=== PATIENT | female | born 1970 | race Caucasian/White ===

== ENCOUNTER 2016-11-20 11:11 | Emergency (ER) | payer SELFPAY ==
[2016-11-20 11:25] VITALS: TEMP 100
[2016-11-20 11:43] LABS: % IMMATURE GRANULYOCYTES 0.4 % (0.0-1.1); ABSOLUTE IMMATURE GRANULOCYTES 0.05 10^3/uL (0.00-0.10); ADD DIFF? NO; ADD MORPH? NO; ADD SCAN? NO; ATYPICAL LYMPHOCYTE FLAG 0 (0-99); FRAGMENT RBC FLAG 0 (0-99); HEMATOCRIT 35.2 % (38.0-47.0); HEMOGLOBIN 11.3 g/dL (12.6-16.3); LEFT SHIFT FLG 10 (0-99); LIPEMIA HEMOLYSIS FLAG 80 (0-99); MEAN CELL HEMOGLOBIN CONCENTR. 32.1 g/dL (32.4-36.7); MEAN CELL VOLUME 87.3 fL (81.5-99.8); MEAN PLATELET VOLUME 11.3 fL (8.7-11.7); PLATELET CLUMPS FLAG 20 (0-99); PLATELET COUNT 270 10^3/uL (150-400); RED BLOOD CELL COUNT 4.03 10^6/uL (4.18-5.33); RED CELL DISTRIBUTION WIDTH 14.4 % (11.5-15.2)
[2016-11-20 12:04] LABS: ANION GAP 11 mEq/L (8-16); CALCIUM 9.4 mg/dL (8.5-10.4); CARBON DIOXIDE 23 mEq/l (22-31); CHLORIDE 106 mEq/L (97-110); CREATININE 0.9 mg/dL (0.6-1.0); GLOMERULAR FILTRATION RATE > 60; GLUCOSE 95 mg/dL (70-100); POTASSIUM 3.8 mEq/L (3.5-5.2); SODIUM 140 mEq/L (134-144)
[2016-11-20] MEDS ORDERED: ONDANSETRON 4 MG/2 ML VIAL ONE (12:14)
[2016-11-20] MEDS ORDERED: fentaNYL 100 MCG/2 ML INJ ONE (12:14)
--- NOTE | 2016-11-20 12:14 | EDPHY ---
H & P Time Seen by Provider: 11/20/16 11:26 HPI/ROS: CHIEF COMPLAINT: Abdominal pain HISTORY OF PRESENT ILLNESS: 46-year-old female presents to the emergency department by private vehicle complaining of left lower quadrant abdominal pain that began on Tuesday, for 5 days ago. Patient states that it began very mild in her left lower quadrant and then has progressed become much worse. No nausea or vomiting. No diarrhea. No urinary symptoms. No blood in her stool. No blood in the urine. No dysuria, urgency or frequency with urination. No chest pain or difficulty breathing. She feels that her abdomen is distended. She denies any reported trauma. She has felt feverish. Normal bowel movement yesterday and today. REVIEW OF SYSTEMS: Constitutional: No fever, no chills. Eyes: No double or blurry vision. ENT: No sore throat. Respiratory: No cough, no shortness of breath. Cardiac: No chest pain. Gastrointestinal: Abdominal pain as above. No vomiting or diarrhea. Genitourinary: No dysuria. Musculoskeletal: No neck or back pain. Skin: No rashes. Neurological: No headache. Past Medical/Surgical History: Appendectomy, , wisdom teeth extraction, uterine ablation 4 years ago, uterine fibroids Social History: Smoking Status: Former smoker Physical Exam: General Appearance: Alert, no distress. Temperature 37.8. Eyes: Pupils equal and round. Extraocular motions are all intact. ENT: Mouth: Mucous membranes moist. Respiratory: No wheezing, rhonchi, or rales, lungs are clear to auscultation. Cardiovascular: Regular rate and rhythm. Gastrointestinal: Abdomen is soft. She has tenderness with palpation in her left lower quadrant. She has some mild rebound tenderness. No guarding. No palpable masses. Nontender to palpate the right lower quadrant. Nontender to palpate the suprapubic area. No CVA tenderness bilaterally. Neurological: Alert and oriented x 3, cranial nerves II through XII grossly intact Skin: Warm and dry, no rashes. Musculoskeletal: Nontender to palpate along the cervical, thoracic or lumbar spine. Neck is supple. Extremities: Full range of motion and no peripheral edema. Psychiatric: Patient is oriented X 3, there is no agitation. Constitutional: Initial Vital Signs Temperature (C) 37.8 C 11/20/16 11:20 Heart Rate 98 11/20/16 11:20 Respiratory Rate 18 11/20/16 11:20 Blood Pressure 136/79 H 11/20/16 11:20 O2 Sat (%) 98 11/20/16 11:20 O2 Delivery Mode Room Air Allergies/Adverse Reactions: codeine Allergy (Severe, Verified 11/20/16 11:22) Anaphylaxis Home Medications: Medication Instructions Recorded Antidepressant 11/20/16 Medical Decision Making - Diagnostics Imaging Results: Imaging Impressions Abdomen CT 11/20/16 12:31 Impression: 1. Cystic change within both ovaries, left greater than right, associated with left ovarian enlargement. Left ovary is transposed slightly superiorly within the left hemipelvis. 2. Fibroid enlargement of the uterus, with fluid-filled distention of the endometrial cavity. 3. No CT evidence of acute diverticulitis or diverticulosis. Results called to Grecia Haider PA-C, at 1:15 p.m. Pelvic/Renal Ultrasound 11/20/16 13:20 Impression: 1. Ectopic left ovary containing a 2.4 cm cyst. No evidence of ovarian torsion bilaterally. 2. Thickened endometrium. Multiple submucosal uterine fibroids. Uterine enlargement. Results called to Grecia King PA-C, at 2:55 PM. Imaging: Discussed imaging studies w/ video game repair technician Radiologist ED Course/Re-evaluation: 46-year-old female presents to the emergency department with abdominal pain. Patient had left lower quadrant abdominal pain. I was concerned about possible diverticulitis. Laboratory studies [place] [address]. Patient had a CT imaging of the abdomen pelvis revealed no evidence of diverticulitis or diverticulosis. She did however have her left ovary riding very high out of the pelvic floor. It appeared complex with cystic lesion. Pelvic ultrasound reveals 2.4 cm left ovarian cyst without evidence of torsion. She had a thickened endometrial lining of at least 2 cm with numerous submucosal fibroids. The patient initially required IV fentanyl for pain. I spoke with the on-call OBGYN, Dr. Francois, who recommended anti-inflammatory such as IV Toradol and she can be discharged home. For pain was too great that she should return to the emergency department. The patient was offered admission and she declined. She was given 30 mg of IV Toradol and was feeling much better. She felt comfortable being discharged home. Encouraged close follow-up with OBGYN on-call. She has was given strict instructions to return to the emergency department immediately if she developed vaginal bleeding, worsening abdominal hitting, fever, vomiting, or if she felt worse in any way. She was comfortable with this plan. Differential Diagnosis: Including but not limited to ovarian cyst, ovarian torsion, diverticulitis, acute appendicitis, urinary tract infection, pyelonephritis - Data Points Laboratory Results: Laboratory Results 11/20/16 11:36 11/20/16 11:36 11/20/16 11/20/16 11/20/16 14:00 11:36 11:36 WBC RBC Hgb Hct MCV MCH MCHC RDW Plt Count MPV Neut % (Auto) Lymph % (Auto) Coal % (Auto) Eos % (Auto) Baso % (Auto) Nucleat RBC Rel Count Absolute Neuts (auto) Absolute Lymphs (auto) Absolute Monos (auto) Absolute Eos (auto) Absolute Basos (auto) Absolute Nucleated RBC Immature Gran % Immature Gran # Sodium 140 mEq/L mEq/L (134-144) Potassium 3.8 mEq/L mEq/L (3.5-5.2) Chloride 106 mEq/L mEq/L (97-110) Carbon Dioxide 23 mEq/l mEq/l (22-31) Anion Gap 11 mEq/L mEq/L (8-16) BUN 9 mg/dL mg/dL (7-23) Creatinine 0.9 mg/dL mg/dL (0.6-1.0) Estimated GFR > 60 Glucose 95 mg/dL mg/dL (70-100) Calcium 9.4 mg/dL mg/dL (8.5-10.4) Beta HCG, Qual NEGATIVE Urine Color PALE YELLOW Urine Appearance CLEAR Urine pH 6.0 (5.0-7.5) Ur Specific [place] 1.032 H (1.002-1.030) Urine Protein NEGATIVE (NEGATIVE) Urine Ketones NEGATIVE (NEGATIVE) Urine Blood NEGATIVE (NEGATIVE) Urine Nitrate NEGATIVE (NEGATIVE) Urine Bilirubin NEGATIVE (NEGATIVE) Urine Urobilinogen NEGATIVE EU EU (0.2-1.0) Ur Leukocyte Esterase NEGATIVE (NEGATIVE) Urine RBC 1-3 /hpf /hpf (0-3) Urine WBC 1-3 /hpf /hpf (0-3) Ur Epithelial Cells TRACE /lpf /lpf (NONE-1+) Urine Glucose NEGATIVE (NEGATIVE) 11/20/16 11:36 WBC 12.34 10^3/uL H 10^3/uL (3.80-9.50) RBC 4.03 10^6/uL L 10^6/uL (4.18-5.33) Hgb 11.3 g/dL L g/dL (12.6-16.3) Hct 35.2 % L % (38.0-47.0) MCV 87.3 fL fL (81.5-99.8) MCH 28.0 pg pg (27.9-34.1) MCHC 32.1 g/dL L g/dL (32.4-36.7) RDW 14.4 % % (11.5-15.2) Plt Count 270 10^3/uL 10^3/uL (150-400) MPV 11.3 fL fL (8.7-11.7) Neut % (Auto) 87.4 % H % (39.3-74.2) Lymph % (Auto) 7.5 % L % (15.0-45.0) Coal % (Auto) 3.5 % L % (4.5-13.0) Eos % (Auto) 0.8 % % (0.6-7.6) Baso % (Auto) 0.4 % % (0.3-1.7) Nucleat RBC Rel Count 0.0 % % (0.0-0.2) Absolute Neuts (auto) 10.78 10^3/uL H 10^3/uL (1.70-6.50) Absolute Lymphs (auto) 0.93 10^3/uL L 10^3/uL (1.00-3.00) Absolute Monos (auto) 0.43 10^3/uL 10^3/uL (0.30-0.80) Absolute Eos (auto) 0.10 10^3/uL 10^3/uL (0.03-0.40) Absolute Basos (auto) 0.05 10^3/uL 10^3/uL (0.02-0.10) Absolute Nucleated RBC 0.00 10^3/uL 10^3/uL (0-0.01) Immature Gran % 0.4 % % (0.0-1.1) Immature Gran # 0.05 10^3/uL 10^3/uL (0.00-0.10) Sodium Potassium Chloride Carbon Dioxide Anion Gap BUN Creatinine Estimated GFR Glucose Calcium Beta HCG, Qual Urine Color Urine Appearance Urine pH Ur Specific [place] Urine Protein Urine Ketones Urine Blood Urine Nitrate Urine Bilirubin Urine Urobilinogen Ur Leukocyte Esterase Urine RBC Urine WBC Ur Epithelial Cells Urine Glucose Medications Given: Discontinued Medications Fentanyl (Sublimaze) 50 mcg IVP EDNOW ONE Stop: 11/20/16 12:23 Last Admin: 11/20/16 12:24 Dose: 50 mcg Fentanyl (Sublimaze) 50 mcg IVP EDNOW ONE Stop: 11/20/16 13:59 Last Admin: 11/20/16 14:07 Dose: 50 mcg Ketorolac Tromethamine (Toradol) 30 mg IVP EDNOW ONE Stop: 11/20/16 15:48 Last Admin: 11/20/16 16:04 Dose: 30 mg Ondansetron HCl (Zofran) 4 mg IVP EDNOW ONE Stop: 11/20/16 12:23 Last Admin: 11/20/16 12:24 Dose: 4 mg Departure - Departure Disposition: Home, Routine, Self-Care Clinical Impression: Abdominal pain Qualifiers: Abdominal location: lower abdomen, unspecified Qualified Code(s): R10.30 - Lower abdominal pain, unspecified Uterine fibroid Qualifiers: Uterine leiomyoma location: submucous Qualified Code(s): D25.0 - Submucous leiomyoma of uterus Condition: Good Instructions: Uterine Fibroids (ED), Abdominal Pain (ED) Additional Instructions: Ibuprofen 600 mg every 8 hours as needed for pain. You should not need any additional ibuprofen tonight since your given IV Toradol in the emergency department. Follow-up with OBGYN as discussed. Return to the emergency department if you developed worsening abdominal pain, vomiting, fever, heavy vaginal bleeding, or if you feel worse in any way. Referrals: Marcie Lazaro MD [Medical Doctor] - As per Instructions (OBGYN on-call)
[2016-11-20] MEDS ORDERED: ONDANSETRON 4 MG/2 ML VIAL IVP ONE (12:22)
[2016-11-20] MEDS ORDERED: fentaNYL 100 MCG/2 ML INJ IVP ONE ×2 (12:22→13:58)
[2016-11-20] MEDS ORDERED: IOPAMIDOL (ISOVUE-300) 100 ML BTL ONE (12:42)
[2016-11-20 15:39] LABS: COLOR PALE YELLOW; LEUKOCYTE ESTERASE,URINE NEGATIVE (NEGATIVE); NITRITE,URINE NEGATIVE (NEGATIVE)
[2016-11-20] MEDS ORDERED: KETOROLAC 30 MG/1 ML SDV IVP ONE (15:47)
[2016-11-20 17:07] VITALS: BP 115/77; PULSE 90; RESP 16; O2SAT 96
== END 2016-11-20 17:33 | disposition home or self-care (01) ==
DX: D25.0 Submucous leiomyoma of uterus (principal); Z87.891 Personal history of nicotine dependence
CPT/HCPCS: 96374; J1885; J2405; J3010; Q9967

== ENCOUNTER 2016-11-21 18:59 | Emergency (ER) | payer SELFPAY ==
[2016-11-21 19:05] VITALS: RESP 18; TEMP 98.6
--- NOTE | 2016-11-21 19:20 | EDPHY ---
H & P Stated Complaint: here yest for same complaint, Abd pain bloating. HPI/ROS: CHIEF COMPLAINT: Abdominal bloating. HISTORY OF PRESENT ILLNESS: The patient is a 46-year-old female presenting with abdominal bloating. The patient was here yesterday for left lower abdominal pain. She was diagnosed with a 2cm left ovarian cyst (with an ectopic left ovary ) and fibroids. She received Toradol and was told to take Ibuprofen for pain management. The patient woke up this morning feeling better. Her pain improved to a 2 or 3. She went for a walk with friends and then out to lunch. After lunch , while walking on [place], her abdomen began to feel bloated. She reports feeling a pressure sensation and not much pain. Patient is able to pass gas. She has not had a bowel movement today which is abnormal for her. She has taken a total of 1200mg Ibuprofen today. She denies nausea or vomiting. No fever. No urinary symptoms. She came in today on the advice of a nurse friend. REVIEW OF SYSTEMS: A ten point review of systems was performed and is negative with the exception of the items mentioned in the HPI. Source: Patient Exam Limitations: No limitations - Personal History LMP (Females 10-55): 1-7 Days Ago - Medical/Surgical History Other PMH: Depression, Ovarian cyst, Fibroids - Social History Smoking Status: Former smoker Drug Use: None Additional Social History: Lives in [place] with her , here for 7 weeks. Born in [place]. - Physical Exam Exam: General Appearance: Alert. Vital signs reviewed. Eyes: Pupils equal and round, no conjunctival injection, no discharge. Anicteric. ENT, Mouth: Mucous membranes are moist, no oropharyngeal erythema or edema. Neck: No lymphadenopathy, supple. Respiratory: Lungs are clear to auscultation; no wheezes, rales, or rhonchi. Cardiovascular: Regular rate and rhythm; no murmur, rub, or gallop. Gastrointestinal: Abdomen is soft and nontender but somewhat distended, no masses or organomegaly, bowel sounds normal. Skin: Warm and dry, no rashes on exposed skin, normal color. Back: No CVAT. Neurological: Alert and oriented. Moving all four extremities easily and equally. Psychiatric: Normal affect. Constitutional: Initial Vital Signs Temperature (C) 37.0 C 11/21/16 19:02 Heart Rate 83 11/21/16 19:02 Respiratory Rate 18 11/21/16 19:02 Blood Pressure 134/77 H 11/21/16 19:02 O2 Sat (%) 96 11/21/16 19:02 O2 Delivery Mode Room Air Allergies/Adverse Reactions: codeine Allergy (Severe, Verified 11/20/16 11:22) Anaphylaxis Home Medications: Medication Instructions Recorded Antidepressant 11/20/16 Medical Decision Making - Diagnostics Imaging: Discussed imaging studies w/ melt room operator Radiologist, I viewed and interpreted images myself ED Course/Re-evaluation: Patient seen here yesterday with ovarian cyst and fibroids, returns today with abdominal bloating. Patient reports her ovarian cyst pain has improved. She now has abdominal bloating, no nausea or vomiting, passing flatus. Patient has not had a bowel movement today. She had an ultrasound CT abd/pel yesterday. Plan for abdominal x-ray to look for obstruction (unlikely given that she is passing flatus). KUB shows nonspecific bowel gas pattern. She reports increase in flatus. She is not in pain. I do not suspect ovarian torsion, ruptured cyst, abscess, or other potentially surgical problem. I feel that is safe for her to return home and she agrees. She plans FU with ob/ wood strip block floor installer. Danger signs reviewed. Departure - Departure Disposition: Home, Routine, Self-Care Clinical Impression: Abdominal bloating Condition: Good Instructions: Gas and Bloating (ED) Additional Instructions: Followup with your primary care physician when you return home. Return to the Emergency Department if you develop fever, worsening pain, dizziness, or lightheadedness. You have been referred to a local primary care physician. Please followup if you continue to have symptoms. Referrals: Bob Pollock [Doctor of Osteopathy] - As per Instructions Report Scribed for: Giovanna Dillon Report Scribed by: Andra Casillas Date of Report: 11/21/16 Time of Report: 19:37 Physician Review and Approval Statement: 11/21/16 19:20 Portions of this note were transcribed by the medical tech. I, Dr. Giovanna Dillon, personally performed the history, physical exam, and medical decision- making; and confirmed the accuracy of the information in the transcribed note.
[2016-11-21 22:18] VITALS: BP 122/74; PULSE 71; O2SAT 95
== END 2016-11-21 21:45 | disposition home or self-care (01) ==
DX: R14.0 Abdominal distension (gaseous) (principal); Z87.891 Personal history of nicotine dependence

== ENCOUNTER 2016-11-24 15:32 | Emergency (ER) | payer SELFPAY ==
[2016-11-24 15:39] VITALS: O2SAT 95
--- NOTE | 2016-11-24 16:19 | EDPHY ---
H & P Time Seen by Provider: 11/24/16 15:59 HPI/ROS: HPI Left lower abdominal pain. 46-year-old female by private vehicle with her friend. This is her 3rd visit to the emergency department. She was seen on November 20 and November 21 for the same complaint. She had a CT of her abdomen and pelvis at that time as well as to pelvic ultrasound. 1 transvaginal. The other transabdominal. Imaging studies did not demonstrate any significant findings other than left ovarian cyst. She reports that she developed this pain 1 week ago after finishing her period. She reports the pain has continued and is slightly worse over the last couple of days. She reports also having some residual bleeding from her period but this has decreased over the last few days. She has not had a fever. No urinary complaints. She has had mild nausea but no vomiting. ROS: Constitutional: No fever, no chills. No weakness. Eyes: No discharge. No changes in vision. ENT: No sore throat. No nasal congestion or rhinorrhea. Respiratory: No cough. No shortness of breath. Cardiac: No chest pain, no palpitations. Gastrointestinal: As above, no vomiting, no diarrhea. Genitourinary: No hematuria. No dysuria or increased frequency with urination. Musculoskeletal: No back pain. No neck pain. No myalgias or arthralgias. Skin: No rashes. Neurological: No headache. No focal weakness or altered sensation. Past medical history: Appendectomy, uterine fibroids, uterine ablation 4 years ago. Social history: Nonsmoker. No alcohol. She currently lives in [facility]. She is here with a friend of hers. Physical Exam: General Appearance: Alert, no distress. This patient is responding to questions appropriately and in full sentences. This patient appears well- hydrated and well-nourished. Eyes: Pupils equal and round no pallor or injection. No lid edema, erythema or injection. Respiratory: There are no retractions, lungs are clear to auscultation with good air movement bilaterally. Cardiovascular: Regular rate and rhythm. No murmur. Gastrointestinal: Abdomen is soft with tenderness on palpation of the left lower quadrant, no masses, bowel sounds normal. No focal tenderness at McBurney 's point. No Akhtar sign. Neurological: Motor sensory function is grossly intact. Cranial nerves are normal. Gait is normal. Skin: Warm and dry, no rashes. Musculoskeletal: Neck is supple and nontender. Extremities are symmetrical. All joints range without pain or impingement. Psychiatric: No agitation. No depression. Database: EKG: Imaging: Transvaginal pelvic ultrasound: Significant for left ovarian cyst which is hemorrhagic and has enlarged to 4.6 cm from previous study. Questionable endometrial polyp with which the patient is aware of. Otherwise normal study. No free fluid. No evidence of torsion or other pathology. Procedures: Emergency department course: IV placed. Blood work was reviewed from her previous visit. Creatinine is normal. She has no contraindications to NSAIDs. Toradol worked well for her during her last emergency department visit. She will be given 30 mg IV. She will be started on IV normal saline with 1 L to be given over the next hour. Pelvic ultrasound will be repeated to evaluate for ovarian pathology. 6:50 p.m., patient re-evaluated. Resting comfortably at this time. I discussed the results of her lab work as well as ultrasound. I discussed follow -up with OBGYN through [facility]. She received information on referral to them from her previous visit. Her pain has resolved. She is feeling much better. Repeat abdominal exam she is soft with mild if any tenderness on palpation of the left lower quadrant. She feels comfortable going home with her friend and is requesting discharge at this time. I feel she is safe for discharge. I reviewed follow-up. Return to emergency department precautions were thoroughly reviewed with her. All of her questions were answered. She was discharged in good condition. Differential Diagnosis: The differential diagnosis on this patient includes but is not limited to ruptured ovarian cyst. Diverticulitis, volvulus, ectopic , ovarian torsion unlikely. This represents a partial list of diagnoses considered. These considerations are based on history, physical exam, past history, reassessment and diagnostic testing. Smoking Status: Former smoker Constitutional: Initial Vital Signs Temperature (C) 37.4 C 11/24/16 15:36 Heart Rate 96 11/24/16 15:36 Respiratory Rate 18 11/24/16 15:36 Blood Pressure 121/81 H 11/24/16 15:36 O2 Sat (%) 95 11/24/16 15:36 O2 Delivery Mode Room Air Allergies/Adverse Reactions: codeine Allergy (Severe, Verified 11/24/16 15:36) Anaphylaxis Home Medications: Medication Instructions Recorded Antidepressant 11/20/16 Medical Decision Making - Data Points Laboratory Results: Laboratory Results 11/24/16 16:40 11/24/16 16:40 Medications Given: Discontinued Medications Hydromorphone HCl (Dilaudid) 0.5 mg IVP EDNOW ONE Stop: 11/24/16 16:21 Last Admin: 11/24/16 16:40 Dose: 0.5 mg Sodium Chloride (Ns) 1,000 mls @ 0 mls/hr IV EDNOW ONE; Wide Open PRN Reason: Protocol Stop: 11/24/16 16:21 Last Admin: 11/24/16 16:38 Dose: 1,000 mls Ketorolac Tromethamine (Toradol) 30 mg IVP EDNOW ONE Stop: 11/24/16 16:21 Last Admin: 11/24/16 16:38 Dose: 30 mg Ondansetron HCl (Zofran) 4 mg IVP EDNOW ONE Stop: 11/24/16 16:21 Last Admin: 11/24/16 16:42 Dose: 4 mg Departure - Departure Disposition: Home, Routine, Self-Care Clinical Impression: Abdominal pain, left lower quadrant, Ruptured ovarian cyst Condition: Good Instructions: Ruptured Ovarian Cyst (ED) Additional Instructions: Read and follow provided instructions. Follow-up with [facility], as discussed for re-evaluation within the next 1-2 days. Ibuprofen dosin mg every 6 hours with meals for the next 3 days only. Do not start taking this medication until tomorrow morning. Return to the emergency department for worsening pain, fever, vomiting, vaginal bleeding, lightheadedness or other serious concerns. Referrals: Leyda Estrada MD [Medical Doctor] - As per Instructions
[2016-11-24] MEDS ORDERED: HYDROmorphONE/DILAUDID 1 MG/ML SYR IVP ONE (16:20)
[2016-11-24] MEDS ORDERED: KETOROLAC 30 MG/1 ML SDV IVP ONE (16:20)
[2016-11-24] MEDS ORDERED: NS 1,000 ML IV ONE (16:20)
[2016-11-24] MEDS ORDERED: ONDANSETRON 4 MG/2 ML VIAL IVP ONE (16:20)
[2016-11-24 16:59] LABS: % IMMATURE GRANULYOCYTES 0.4 % (0.0-1.1); ABSOLUTE IMMATURE GRANULOCYTES 0.04 10^3/uL (0.00-0.10); ADD DIFF? NO; ADD MORPH? NO; ADD SCAN? NO; ATYPICAL LYMPHOCYTE FLAG 0 (0-99); FRAGMENT RBC FLAG 0 (0-99); HEMOGLOBIN 10.7 g/dL (12.6-16.3); LEFT SHIFT FLG 0 (0-99); LIPEMIA HEMOLYSIS FLAG 80 (0-99); MEAN CELL HEMOGLOBIN 27.9 pg (27.9-34.1); MEAN CELL HEMOGLOBIN CONCENTR. 32.4 g/dL (32.4-36.7); MEAN CELL VOLUME 85.9 fL (81.5-99.8); PLATELET CLUMPS FLAG 0 (0-99); PLATELET COUNT 288 10^3/uL (150-400); RED BLOOD CELL COUNT 3.84 10^6/uL (4.18-5.33); RED CELL DISTRIBUTION WIDTH 14.2 % (11.5-15.2)
[2016-11-24 17:20] LABS: COLOR PALE YELLOW; LEUKOCYTE ESTERASE,URINE NEGATIVE (NEGATIVE); NITRITE,URINE NEGATIVE (NEGATIVE)
[2016-11-24 17:22] LABS: BACTERIA TRACE /hpf (NONE SEEN)
[2016-11-24 17:35] LABS: ANION GAP 9 mEq/L (8-16); CALCIUM 9.2 mg/dL (8.5-10.4); CARBON DIOXIDE 23 mEq/l (22-31); CHLORIDE 106 mEq/L (97-110); GLOMERULAR FILTRATION RATE 59; GLUCOSE 87 mg/dL (70-100); POTASSIUM 4.1 mEq/L (3.5-5.2); SODIUM 138 mEq/L (134-144)
[2016-11-24 19:17] VITALS: BP 108/68; PULSE 75; RESP 20; TEMP 98.2
== END 2016-11-24 19:19 | disposition home or self-care (01) ==
DX: N83.202 Unspecified ovarian cyst, left side (principal); E86.9 Volume depletion, unspecified; Z87.891 Personal history of nicotine dependence
CPT/HCPCS: 96374; J1170; J1885; J2405

== ENCOUNTER → 2016-12-01 | Outpatient (CLI) | payer OTHER | LOC: FIMAGING 14:45 | PROVIDERS: ATTEND Midwife | DX: D25.0 Submucous leiomyoma of uterus (principal); D25.1 Intramural leiomyoma of uterus ==

== ENCOUNTER 2016-12-02 20:38 | Inpatient (IN) | payer OTHER ==
--- NOTE | 2016-12-02 21:44 | EDPHY ---
H & P Stated Complaint: Nausea, lightheaded, sharp L sided pain. Time Seen by Provider: 12/02/16 21:44 - Personal History LMP (Females 10-55): Irregular Current Tetanus/Diphtheria Vaccine: Unsure Current Tetanus Diphtheria and Acellular Pertussis (TDAP): Unsure - Medical/Surgical History Hx Asthma: No Hx Chronic Respiratory Disease: No Hx Diabetes: No Hx Cardiac Disease: No Hx Renal Disease: No Hx Cirrhosis: No Hx Alcoholism: No Hx HIV/AIDS: No Hx Splenectomy or Spleen Trauma: No Other PMH: Depression, Ovarian cyst, Fibroids, appy, , D & C. - Social History Smoking Status: Former smoker Constitutional: Initial Vital Signs Temperature (C) 37.8 C 12/02/16 20:41 Heart Rate 115 H 12/02/16 20:41 Respiratory Rate 18 12/02/16 20:41 Blood Pressure 110/73 12/02/16 20:41 O2 Sat (%) 97 12/02/16 20:41 O2 Delivery Mode Room Air Allergies/Adverse Reactions: codeine Allergy (Severe, Verified 12/02/16 20:45) Anaphylaxis Home Medications: Medication Instructions Recorded Antidepressant 11/20/16 Mirtazapine 12/02/16 Tramadol HCl 12/02/16 Medical Decision Making - Diagnostics Imaging Results: Imaging Impressions Abdomen CT 12/02/16 22:03 Impression: 1. Concentric narrowing of the proximal sigmoid colon with an adjacent inflammatory process extending caudal medially into the left adnexal region ( perhaps of ovarian etiology), resulting in a regional colitis and resulting in an upstream constipation-obstipation. 2. Mild splenomegaly. 3. Small hepatic cysts. Findings were discussed with Moo Melendez MD at 23:27, on 12/02/2016. Imaging: Discussed imaging studies w/ patient accounting representative Radiologist, I viewed and interpreted images myself ED Course/Re-evaluation: CHIEF COMPLAINT: Multiple complaints including abdominal pain HISTORY OF PRESENT ILLNESS: The patient is a 46 y/o female arriving with her sister and returning for her 4th visit to our ED in the last two weeks for similar complaints. She complains of waxing and waning weakness, dizziness, dysuria, nausea, chills, and abdominal pain since flying into [place] on November 16. She has a history of uterine fibroids and ovarian cysts and reports intermittent abdominal pain associated with these. She's had three pelvic ultrasounds, a pelvic exam, an abdominal x-ray, and an abdominal CT with contrast during these previous visits. She reports her ovarian cyst increased in size since the ultrasound on 11/20. Her abdominal pain is primarily left- sided and described as sharp at times. Her WBC count has trended up over the last few visits. Currently on menstrual period. REVIEW OF SYSTEMS: A 10 point review of systems was performed and is negative with the exception of the elements mentioned in the history of present illness. PHYSICAL EXAM: HR, BP, O2 Sat, RR. Temp noted General Appearance: Alert, well hydrated, appropriate, and non-toxic appearing. Head: Atraumatic without scalp tenderness or obvious injury Eyes: Pupils equal, round, reactive to light and accommodation, EOMI, no trauma , no injection. Nose: Atraumatic, no rhinorrhea, clear. Throat: There is no erythema or exudates, no lesions, normal tonsils, mucus membranes moist. Neck: Supple, nontender, no lymphadenopathy. Respiratory: No retractions, no distress, no wheezes, and no accessory muscle use. Lungs are clear to auscultation bilaterally. Cardiovascular: Regular rate and rhythm, no murmurs, rubs, or gallops. Good capillary refill all extremities. Gastrointestinal: Abdomen is soft, diffusely tender worse in lower quadrants with some distension, no masses, no rebound, no guarding, no peritoneal signs. Musculoskeletal: Normal active ROM of all extremities, atraumatic. Neurological: Alert, appropriate, and interactive. Nonfocal neuro exam. Skin: No rashes, good turgor, no nodules on palpation. Past medical history: Depression, ovarian cysts, vaginal herpes Past surgical history: appendectomy Family history: noncontributory Social history: Sister at bedside. Lives in [facility]. Visiting [place] since 11/16 DIFFERENTIAL DIAGNOSIS: The differential diagnosis for the patient's abdominal pain included but was not limited to ovarian cyst, pelvic inflammatory disease, ovarian torsion, urinary tract infection, ectopic , cholecystitis, and appendicitis. DIAGNOSTICS/PROCEDURES/CRITICAL CARE TIME: Abdominal CT: LLQ process with possible narrowing bowel or ovarian inflammation MEDICAL DECISION MAKING: This is a 46 y/o female who presents with unimproving left-sided abdominal pain with several associated symptoms over the last two weeks. She has diffuse tenderness on exam worse in the lower quadrants with some distension. Her recent labs are concerning for worsening infection and her abdominal tenderness is suspicious for surgical process. Plan for IV, labs, UA, and likely additional imaging. 220: Consulted with Dr. Torres, radiologist. After reviewing previous scan, he recommends re-scanning the patient today. Reassessed patient and discussed work up thus far. Her WBC is continuing to increase and is 18.15 today with a left shift. Her CT shows LLQ process with bowel and possible ovarian inflammation. She will require admission. Spoke with Dr. Costa, hospitalist, who will admit patient. He requests a surgical consult on admission. Consulted with nurse for Dr. Edwards, surgeon. He will follow patient during admission. - Data Points Laboratory Results: Laboratory Results 12/02/16 22:15 12/02/16 22:15 12/02/16 12/02/16 12/02/16 22:15 22:15 22:15 WBC 18.15 10^3/uL H 10^3/uL (3.80-9.50) RBC 3.67 10^6/uL L 10^6/uL (4.18-5.33) Hgb 10.1 g/dL L g/dL (12.6-16.3) Hct 31.1 % L % (38.0-47.0) MCV 84.7 fL fL (81.5-99.8) MCH 27.5 pg L pg (27.9-34.1) MCHC 32.5 g/dL g/dL (32.4-36.7) RDW 14.1 % % (11.5-15.2) Plt Count 402 10^3/uL H 10^3/uL (150-400) MPV 10.3 fL fL (8.7-11.7) Neut % (Auto) 82.8 % H % (39.3-74.2) Lymph % (Auto) 9.1 % L % (15.0-45.0) [place] % (Auto) 6.2 % % (4.5-13.0) Eos % (Auto) 0.9 % % (0.6-7.6) Baso % (Auto) 0.4 % % (0.3-1.7) Nucleat RBC Rel Count 0.0 % % (0.0-0.2) Absolute Neuts (auto) 15.01 10^3/uL H 10^3/uL (1.70-6.50) Absolute Lymphs (auto) 1.66 10^3/uL 10^3/uL (1.00-3.00) Absolute Monos (auto) 1.13 10^3/uL H 10^3/uL (0.30-0.80) Absolute Eos (auto) 0.17 10^3/uL 10^3/uL (0.03-0.40) Absolute Basos (auto) 0.08 10^3/uL 10^3/uL (0.02-0.10) Absolute Nucleated RBC 0.00 10^3/uL 10^3/uL (0-0.01) Immature Gran % 0.6 % % (0.0-1.1) Immature Gran # 0.10 10^3/uL 10^3/uL (0.00-0.10) Sodium 137 mEq/L mEq/L (134-144) Potassium 4.5 mEq/L mEq/L (3.5-5.2) Chloride 103 mEq/L mEq/L (97-110) Carbon Dioxide 21 mEq/l L mEq/l (22-31) Anion Gap 13 mEq/L mEq/L (8-16) BUN 12 mg/dL mg/dL (7-23) Creatinine 0.9 mg/dL mg/dL (0.6-1.0) Estimated GFR > 60 Glucose 113 mg/dL H mg/dL (70-100) Calcium 8.9 mg/dL mg/dL (8.5-10.4) Total Bilirubin 0.3 mg/dL mg/dL (0.1-1.4) Conjugated Bilirubin 0.2 mg/dL mg/dL (0.0-0.5) Unconjugated Bilirubin 0.1 mg/dL mg/dL (0.0-1.1) AST 22 IU/L IU/L (14-46) ALT 35 IU/L IU/L (9-52) Alkaline Phosphatase 133 IU/L H IU/L (38-126) Total Protein 6.5 g/dL g/dL (6.3-8.2) Albumin 3.3 g/dL L g/dL (3.5-5.0) Lipase 34.0 IU/L IU/L (23-300) Beta HCG, Qual NEGATIVE Urine Color Urine Appearance Urine pH Ur Specific [place] Urine Protein Urine Ketones Urine Blood Urine Nitrate Urine Bilirubin Urine Urobilinogen Ur Leukocyte Esterase Urine RBC Urine WBC Ur Epithelial Cells Urine Mucus Urine Glucose 12/02/16 21:35 WBC RBC Hgb Hct MCV MCH MCHC RDW Plt Count MPV Neut % (Auto) Lymph % (Auto) [place] % (Auto) Eos % (Auto) Baso % (Auto) Nucleat RBC Rel Count Absolute Neuts (auto) Absolute Lymphs (auto) Absolute Monos (auto) Absolute Eos (auto) Absolute Basos (auto) Absolute Nucleated RBC Immature Gran % Immature Gran # Sodium Potassium Chloride Carbon Dioxide Anion Gap BUN Creatinine Estimated GFR Glucose Calcium Total Bilirubin Conjugated Bilirubin Unconjugated Bilirubin AST ALT Alkaline Phosphatase Total Protein Albumin Lipase Beta HCG, Qual Urine Color YELLOW Urine Appearance HAZY Urine pH 5.0 (5.0-7.5) Ur Specific [place] 1.019 (1.002-1.030) Urine Protein 2+ H (NEGATIVE) Urine Ketones NEGATIVE (NEGATIVE) Urine Blood 3+ H (NEGATIVE) Urine Nitrate NEGATIVE (NEGATIVE) Urine Bilirubin NEGATIVE (NEGATIVE) Urine Urobilinogen NEGATIVE EU EU (0.2-1.0) Ur Leukocyte Esterase TRACE H (NEGATIVE) Urine RBC 50-182 /hpf H /hpf (0-3) Urine WBC 3-5 /hpf H /hpf (0-3) Ur Epithelial Cells 1+ /lpf /lpf (NONE-1+) Urine Mucus TRACE /lpf /lpf (NONE-1+) Urine Glucose NEGATIVE (NEGATIVE) Medications Given: Discontinued Medications Sodium Chloride (Ns) 1,000 mls @ 0 mls/hr IV EDNOW ONE; Wide Open PRN Reason: Protocol Stop: 12/02/16 22:04 Last Admin: 12/02/16 22:15 Dose: 1,000 mls Ketorolac Tromethamine (Toradol) 30 mg IVP EDNOW ONE Stop: 12/02/16 23:00 Last Admin: 12/02/16 23:16 Dose: Not Given Departure - Departure Disposition: [facility] Inpatient Acute Clinical Impression: Abdominal pain Qualifiers: Abdominal location: lower abdomen, unspecified Qualified Code(s): R10.30 - Lower abdominal pain, unspecified Leukocytosis Qualifiers: Leukocytosis type: other Qualified Code(s): D72.828 - Other elevated white blood cell count Condition: Fair Referrals: NONE *PRIMARY CARE P,. [Unknown] - As per Instructions Report Scribed for: Moo Melendez Report Scribed by: Kyung Jo Date of Report: 12/02/16 Time of Report: 22:07
[2016-12-02 21:58] LABS: COLOR YELLOW; LEUKOCYTE ESTERASE,URINE TRACE (NEGATIVE); NITRITE,URINE NEGATIVE (NEGATIVE)
[2016-12-02] MEDS ORDERED: NS 1,000 ML IV ONE (22:03)
[2016-12-02] MEDS ORDERED: IOPAMIDOL (ISOVUE-300) 100 ML BTL ONE (22:16)
[2016-12-02 22:22] LABS: % IMMATURE GRANULYOCYTES 0.6 % (0.0-1.1); ADD DIFF? NO; ADD MORPH? NO; ADD SCAN? NO; ATYPICAL LYMPHOCYTE FLAG 10 (0-99); FRAGMENT RBC FLAG 0 (0-99); HEMATOCRIT 31.1 % (38.0-47.0); HEMOGLOBIN 10.1 g/dL (12.6-16.3); LEFT SHIFT FLG 0 (0-99); LIPEMIA HEMOLYSIS FLAG 80 (0-99); MEAN CELL HEMOGLOBIN 27.5 pg (27.9-34.1); MEAN CELL HEMOGLOBIN CONCENTR. 32.5 g/dL (32.4-36.7); MEAN CELL VOLUME 84.7 fL (81.5-99.8); MEAN PLATELET VOLUME 10.3 fL (8.7-11.7); PLATELET CLUMPS FLAG 0 (0-99); PLATELET COUNT 402 10^3/uL (150-400); RED BLOOD CELL COUNT 3.67 10^6/uL (4.18-5.33); RED CELL DISTRIBUTION WIDTH 14.1 % (11.5-15.2)
[2016-12-02 22:24] LABS: MUCUS TRACE /lpf (NONE-1+); RBC,URINE 50-182 /hpf (0-3)
[2016-12-02 22:38] LABS: ALANINE AMINOTRANSFERASE 35 IU/L (9-52); ALBUMIN 3.3 g/dL (3.5-5.0); ALKALINE PHOSPHATASE 133 IU/L (38-126); ANION GAP 13 mEq/L (8-16); ASPARTATE AMINOTRANSFERASE 22 IU/L (14-46); BILIRUBIN,TOTAL 0.3 mg/dL (0.1-1.4); BILIRUBIN-CONJUGATED 0.2 mg/dL (0.0-0.5); BILIRUBIN-UNCONJUGATED 0.1 mg/dL (0.0-1.1); CALCIUM 8.9 mg/dL (8.5-10.4); CARBON DIOXIDE 21 mEq/l (22-31); CHLORIDE 103 mEq/L (97-110); CREATININE 0.9 mg/dL (0.6-1.0); GLOMERULAR FILTRATION RATE > 60; GLUCOSE 113 mg/dL (70-100); POTASSIUM 4.5 mEq/L (3.5-5.2); SODIUM 137 mEq/L (134-144); TOTAL PROTEIN 6.5 g/dL (6.3-8.2)
[2016-12-02] MEDS ORDERED: KETOROLAC 30 MG/1 ML SDV IVP ONE (22:59)
[2016-12-02] MEDS ORDERED: ERTAPENEM 1 GM in NS 100 ML IV ONE (23:38)
[2016-12-02] MEDS ORDERED: IBUPROFEN 800 MG TAB PO ONE (23:42)
[2016-12-02] MEDS ORDERED: ONDANSETRON DISINTEGRATING 4 MG TAB PO ONE (23:42)
[2016-12-02] MEDS ORDERED: ONDANSETRON DISINTEGRATING 4 MG TAB ONE (23:43)
[2016-12-02] MEDS ORDERED: IBUPROFEN 200 MG TAB PO ONE ×2 (23:43→23:46)
[2016-12-02] MEDS ORDERED: SIMETHICONE 80 MG TAB CHEW PO ONE (23:55)
--- NOTE | 2016-12-03 01:02 | PDGENHP ---
History and Physical - Chief Complaint abdominal pain - History of Present Illness 46yo female re-presents to the ED with lower abdominal pain. Briefly, has been [place] the state since [place], has presented to the ED now 4x with similar complaints. this time c/o LLQ pain, worse in intensity than previous. Described as sharp, 9/10 and worse with palpation, better with lying still and IV narcotics. Prior to these episodes, has had chronic issues with ovarian cysts and has had chronic pelvic pain but this is different. Has had nausea without vomiting, mild fevers and chills. History Information - Allergies/Home Medication List Allergies/Adverse Reactions: codeine Allergy (Severe, Verified 12/02/16 20:45) Anaphylaxis Home Medications: Antidepressant 11/20/16 [Last Taken Unknown] Mirtazapine 12/02/16 [Last Taken Unknown] Tramadol HCl 12/02/16 [Last Taken Unknown] I have personally reviewed and updated: family history, medical history, social history, surgical history Past Medical History: depression, ovarian cysts. - Surgical History Reports: appendectomy Additional surgical history: , D&C - Family History Positive for: non-pertinent - Social History Smoking Status: Former smoker Alcohol Use: Occasionally Drug Use: None Additional social history: from here, currently lives in [place], teaches [employer] Review of Systems ROS: 10pt was reviewed & negative except for what was stated in HPI & below Physical Exam Temp Pulse Resp BP Pulse Ox 37.3 C 95 16 110/73 95 12/02/16 23:30 12/02/16 23:30 12/02/16 23:30 12/02/16 23:30 12/02/16 23:30 Constitutional: other (mild distress although is laughing ) Eyes: PERRL, anicteric sclera, EOMI Ears, Nose, Mouth, Throat: moist mucous membranes, hearing normal, ears appear normal, no oral mucosal ulcers Cardiovascular: regular rate and rhythym, no murmur, rub, or gallop, No edema Respiratory: no respiratory distress, no rales or rhonchi, clear to auscultation Gastrointestinal: other (soft, minimally distended, focally tender in the LLQ) Skin: warm, normal color, no rashes or abrasions, no fluctuance, no induration, No mottled Musculoskeletal: full muscle strength, no muscle tenderness, normal joint ROM, no joint effusions Neurologic: AAOx3 Psychiatric: interacting appropriately Lymph, Heme, Immunologic: no cervical LAD Lab Data & Imaging Review 12/02/16 22:15 12/02/16 22:15 WBC 18.15 10^3/uL (3.80-9.50) H 12/02/16 22:15 RBC 3.67 10^6/uL (4.18-5.33) L 12/02/16 22:15 Hgb 10.1 g/dL (12.6-16.3) L 12/02/16 22:15 Hct 31.1 % (38.0-47.0) L 12/02/16 22:15 MCV 84.7 fL (81.5-99.8) 12/02/16 22:15 MCH 27.5 pg (27.9-34.1) L 12/02/16 22:15 MCHC 32.5 g/dL (32.4-36.7) 12/02/16 22:15 RDW 14.1 % (11.5-15.2) 12/02/16 22:15 Plt Count 402 10^3/uL (150-400) H 12/02/16 22:15 MPV 10.3 fL (8.7-11.7) 12/02/16 22:15 Neut % (Auto) 82.8 % (39.3-74.2) H 12/02/16 22:15 Lymph % (Auto) 9.1 % (15.0-45.0) L 12/02/16 22:15 [place] % (Auto) 6.2 % (4.5-13.0) 12/02/16 22:15 Eos % (Auto) 0.9 % (0.6-7.6) 12/02/16 22:15 Baso % (Auto) 0.4 % (0.3-1.7) 12/02/16 22:15 Nucleat RBC Rel Count 0.0 % (0.0-0.2) 12/02/16 22:15 Absolute Neuts (auto) 15.01 10^3/uL (1.70-6.50) H 12/02/16 22:15 Absolute Lymphs (auto) 1.66 10^3/uL (1.00-3.00) 12/02/16 22:15 Absolute Monos (auto) 1.13 10^3/uL (0.30-0.80) H 12/02/16 22:15 Absolute Eos (auto) 0.17 10^3/uL (0.03-0.40) 12/02/16 22:15 Absolute Basos (auto) 0.08 10^3/uL (0.02-0.10) 12/02/16 22:15 Absolute Nucleated RBC 0.00 10^3/uL (0-0.01) 12/02/16 22:15 Immature Gran % 0.6 % (0.0-1.1) 12/02/16 22:15 Immature Gran # 0.10 10^3/uL (0.00-0.10) 12/02/16 22:15 Sodium 137 mEq/L (134-144) 12/02/16 22:15 Potassium 4.5 mEq/L (3.5-5.2) 12/02/16 22:15 Chloride 103 mEq/L (97-110) 12/02/16 22:15 Carbon Dioxide 21 mEq/l (22-31) L 12/02/16 22:15 Anion Gap 13 mEq/L (8-16) 12/02/16 22:15 BUN 12 mg/dL (7-23) 12/02/16 22:15 Creatinine 0.9 mg/dL (0.6-1.0) 12/02/16 22:15 Estimated GFR > 60 12/02/16 22:15 Glucose 113 mg/dL (70-100) H 12/02/16 22:15 Calcium 8.9 mg/dL (8.5-10.4) 12/02/16 22:15 Total Bilirubin 0.3 mg/dL (0.1-1.4) 12/02/16 22:15 Conjugated Bilirubin 0.2 mg/dL (0.0-0.5) 12/02/16 22:15 Unconjugated Bilirubin 0.1 mg/dL (0.0-1.1) 12/02/16 22:15 AST 22 IU/L (14-46) 12/02/16 22:15 ALT 35 IU/L (9-52) 12/02/16 22:15 Alkaline Phosphatase 133 IU/L (38-126) H 12/02/16 22:15 Total Protein 6.5 g/dL (6.3-8.2) 12/02/16 22:15 Albumin 3.3 g/dL (3.5-5.0) L 12/02/16 22:15 Lipase 34.0 IU/L (23-300) 12/02/16 22:15 Beta HCG, Qual NEGATIVE 12/02/16 22:15 Urine Color YELLOW 12/02/16 21:35 Urine Appearance HAZY 12/02/16 21:35 Urine pH 5.0 (5.0-7.5) 12/02/16 21:35 Ur Specific [place] 1.019 (1.002-1.030) 12/02/16 21:35 Urine Protein 2+ (NEGATIVE) H 12/02/16 21:35 Urine Ketones NEGATIVE (NEGATIVE) 12/02/16 21:35 Urine Blood 3+ (NEGATIVE) H 12/02/16 21:35 Urine Nitrate NEGATIVE (NEGATIVE) 12/02/16 21:35 Urine Bilirubin NEGATIVE (NEGATIVE) 12/02/16 21:35 Urine Urobilinogen NEGATIVE EU (0.2-1.0) 12/02/16 21:35 Ur Leukocyte Esterase TRACE (NEGATIVE) H 12/02/16 21:35 Urine RBC 50-182 /hpf (0-3) H 12/02/16 21:35 Urine WBC 3-5 /hpf (0-3) H 12/02/16 21:35 Ur Epithelial Cells 1+ /lpf (NONE-1+) 12/02/16 21:35 Urine Mucus TRACE /lpf (NONE-1+) 12/02/16 21:35 Urine Glucose NEGATIVE (NEGATIVE) 12/02/16 21:35 Visualized and Interpreted imaging results: Yes Interpretation: Reviewed CT scan, appears to have focal LLQ colitis, no tics, no free air and no free fluid. Assessment & Plan Assessment: Abdominal pain (Acute) Leukocytosis (Acute) Plan: 46yo F c recurrent LLQ abdominal pain. On review of her CT scan it appears to be focal sigmoid colitis, unclear etiology as there are no tics. I do anticipate that the inflammation will improve with bowel rest, hydration and Iv antibiotics. Will cont to follow. Discussed with the patient that she will likely need exploration in OR if decompensates or fails to improve. Will need c- scope when resolves to r/o malignancy.
[2016-12-03] MEDS ORDERED: ONDANSETRON 4 MG/2 ML VIAL IVP PRN (01:14)
[2016-12-03] MEDS ORDERED: ONDANSETRON DISINTEGRATING 4 MG TAB PO PRN (01:14)
[2016-12-03] MEDS ORDERED: ACETAMINOPHEN 325 MG TAB PO PRN (01:14)
--- NOTE | 2016-12-03 01:42 | GHP ---
[f rep st] HISTORY AND PHYSICAL DATE OF ADMISSION: 12/02/2016 CHIEF COMPLAINT: Abdominal pain. HISTORY OF PRESENT ILLNESS: This is a 46-year-old female, who is in town visiting from [place], who has been to the ER now 4 times in the past 3 weeks for abdominal pain. This started when she was o n the plane here. Associated with some nausea, no vomiting. She initially had some diarrhea which was followed by constipation after she started tramadol followed by now soft stools. She has had no hematochezia. She has a history of an appendectomy, as well as a . She never had pain li ke this before. Initially noted was an ovarian cyst. She followed up with Gynecology, who performe d a pelvic ultrasound and said that this had resolved. Her pain, however, did not resolve thus she re-presented to the emergency department today. She reports some vaginal bleeding and reports that it is probably early for her normal menstrual cycle. PAST MEDICAL/SURGICAL HISTORY: 1. Appendectomy. 2. . MEDICATIONS: Please see medication reconciliation. ALLERGIES: Codeine. FAMILY HISTORY: Her mother had lung cancer. SOCIAL HISTORY: She is visiting from [place]. REVIEW OF SYSTEMS: A 10-point review of systems is conducted and is negative except per HPI. PHYSICAL EXAM: VITAL SIGNS: Blood pressure initially 110/73, heart rate 115, respiration rate 18, saturating 97% on room air. Temperature is 37.8. GENERAL: Ms. Akhtar is a pleasant female who is resting comfortably with her friends, in no acute distress. HEENT: Shows her to be normocephalic, atraumatic. CARDIOVASCULAR: Regular rate and rhythm. No murmurs, rubs, or gallops. PULMONARY: L ungs clear to auscultation bilaterally. ABDOMEN: Shows her to be mildly distended. She is soft, h owever, she is quite tender to palpation with a palpable mass felt in the left lower quadrant. Ther e is no guarding or rebound. SKIN: Shows no rash. : Shows no Ralph. NEUROLOGIC: Shows her to be alert and oriented x3. She is moving all extremities. PSYCHIATRIC: Shows normal mood and affe ct. LABS: White count is 18,000 with 82% neutrophils, hemoglobin is 10.1. Basic metabolic panel is rel atively unremarkable. Her alkaline phosphatase is 133, otherwise, her LFTs are normal. Urinalysis shows 50-182 reds. DATA: 1. I discussed this with Dr. Melendez as well as Dr. Edwards. Will plan to admit to Med/Surg for IV antibiotics. 2. I personally reviewed and interpreted her CT scan. This does show some inflammation of the sigm oid colon with proximal obstipation. Radiologist questions whether this may be extrinsic phlegmon f rom her left ovary. IMPRESSION AND PLAN: A 46-year-old otherwise healthy female presents with sigmoid colitis of unclea r etiology. 1. Sigmoid colitis: She has no diverticula. Radiologist questions whether there may be an extrins ic phlegmon causing colitis from her left ovary. Dr. Edwards will evaluate her tonight. Will pl ronda her on IV antibiotics, check a procalcitonin level. I do not think she has a surgical abdomen a t this point. Could consider involving CHORAL DIRECTOR tomorrow, she has seen Dr. Ness. Will monitor her c losely and triage her to Med/Surg. 2. Hematuria: This is likely contaminated due to vaginal bleeding. She says that she is early for her normal menstrual cycle. We will follow. 3. Anemia: This appears to have been chronic since the beginning of this month. She is normocytic . 4. Leukocytosis: This is likely due to her abdominal issues. We will recheck this tomorrow. 5. Thrombocytosis: Likely inflammatory in nature. /[id number]/MODL
[2016-12-03] MEDS: NS 1,000 ML IV SCH ×2 (01:50→15:26)
[2016-12-03 06:32] LABS: % IMMATURE GRANULYOCYTES 0.4 % (0.0-1.1); ABSOLUTE IMMATURE GRANULOCYTES 0.04 10^3/uL (0.00-0.10); ADD DIFF? NO; ADD MORPH? NO; ADD SCAN? NO; ATYPICAL LYMPHOCYTE FLAG 0 (0-99); FRAGMENT RBC FLAG 0 (0-99); HEMATOCRIT 27.9 % (38.0-47.0); HEMOGLOBIN 9.1 g/dL (12.6-16.3); LEFT SHIFT FLG 10 (0-99); LIPEMIA HEMOLYSIS FLAG 80 (0-99); MEAN CELL HEMOGLOBIN 27.8 pg (27.9-34.1); MEAN CELL HEMOGLOBIN CONCENTR. 32.6 g/dL (32.4-36.7); MEAN CELL VOLUME 85.3 fL (81.5-99.8); MEAN PLATELET VOLUME 9.9 fL (8.7-11.7); PLATELET CLUMPS FLAG 0 (0-99); PLATELET COUNT 321 10^3/uL (150-400); RED BLOOD CELL COUNT 3.27 10^6/uL (4.18-5.33)
[2016-12-03 06:44] LABS: ALANINE AMINOTRANSFERASE 28 IU/L (9-52); ALBUMIN 2.9 g/dL (3.5-5.0); ALKALINE PHOSPHATASE 106 IU/L (38-126); ANION GAP 11 mEq/L (8-16); ASPARTATE AMINOTRANSFERASE 15 IU/L (14-46); BILIRUBIN,TOTAL 0.3 mg/dL (0.1-1.4); CALCIUM 8.3 mg/dL (8.5-10.4); CARBON DIOXIDE 21 mEq/l (22-31); CHLORIDE 111 mEq/L (97-110); CREATININE 0.9 mg/dL (0.6-1.0); GLOMERULAR FILTRATION RATE > 60; GLUCOSE 89 mg/dL (70-100); POTASSIUM 4.2 mEq/L (3.5-5.2); SODIUM 143 mEq/L (134-144); TOTAL PROTEIN 5.6 g/dL (6.3-8.2)
[2016-12-03] MEDS: ERTAPENEM 1 GM in NS 100 ML IV SCH (08:42)
--- NOTE | 2016-12-03 09:07 | HOSPPROG ---
Hospitalist Progress Note Assessment/Plan: 46-year-old female admitted with abdominal pain and find to have sigmoid colitis. It is unclear if it is infectious or inflammatory she has been placed on IV antibiotics and is slowly improving with that and bowel rest. Patient is new to me today. - Acute sigmoid colitis either inflammatory or infectious. With bowel rest she is slowly improving. - Hematuria noted on admission likely secondary to a contaminated urine due to menstrual period. - Anemia stable plan: Continue bowel rest and the antibiotics for approximately 48 hours at that time will decide if the antibiotics should be continued. She is afebrile with a normal white count. Subjective: Reports the abdominal pain is improving. No fever chills sweats nausea or vomiting Objective: Vital Signs Temp Pulse Resp BP Pulse Ox 36.6 C 80 18 95/51 L 94 12/03/16 07:57 12/03/16 07:57 12/03/16 07:57 12/03/16 07:57 12/03/16 07:57 Laboratory Results 12/03/16 06:20 12/03/16 06:20 12/02/16 12/03/16 12/04/16 05:59 05:59 05:59 Intake Total 1680 Balance 1680 Laboratory Tests 12/02/16 12/02/16 12/03/16 22:15 22:15 06:20 WBC 18.15 H 11.25 H Hgb 10.1 L 9.1 L Albumin Procalcitonin 0.12 H 12/03/16 06:20 WBC Hgb Albumin 2.9 L Procalcitonin - Pending Discharge Pending Discharge Within 24 Hours: No Pending Discharge Within 48 Hours: Yes Pending Discharge Date: 12/05/16 Pending Discharge Time: 11:00 - Physical Exam Constitutional: no apparent distress Eyes: PERRL, anicteric sclera Ears, Nose, Mouth, Throat: moist mucous membranes Cardiovascular: regular rate and rhythym, no murmur, rub, or gallop Respiratory: no respiratory distress, no rales or rhonchi Gastrointestinal: normoactive bowel sounds, other Genitourinary: no bladder fullness ( withou eound.) Skin: warm Musculoskeletal: full muscle strength Neurologic: AAOx3, CN II-XII Intact Psychiatric: interacting appropriately ICD10 Worksheet Patient Problems: Problems Problem Status Onset Abdominal pain Acute Leukocytosis Acute
[2016-12-03] MEDS: ENOXAPARIN 40 MG/0.4 ML SYR SC SCH ×2 (10:12→10:54)
--- NOTE | 2016-12-03 14:01 | SOAPPROG ---
SOAP Progress Note Assessment/Plan: A/P - Doing much better, pain still present but markedly improved. Patient able to drink and urinate without too much pain. Still TTP in the LLQ but will at least allow me to palpate today which is better than last night. At any rate, would continue clears today and plan to ADAT tomorrow if she continues to make progress as she has 12/03/16 13:59 Subjective: pain improved, still present but much better Objective: Vital Signs Temp Pulse Resp BP Pulse Ox 36.8 C 74 16 100/60 96 12/03/16 11:05 12/03/16 11:05 12/03/16 11:05 12/03/16 11:05 12/03/16 11:05 Laboratory Results 12/03/16 06:20 12/03/16 06:20 12/02/16 12/03/16 12/04/16 05:59 05:59 05:59 Intake Total 1680 Balance 1680 ICD10 Worksheet Patient Problems: Problems Problem Status Onset Abdominal pain Acute Leukocytosis Acute
[2016-12-03] MEDS: IBUPROFEN 200 MG TAB PO PRN (15:22)
[2016-12-03] MEDS ORDERED: SIMETHICONE 80 MG TAB CHEW PO ONE (23:53)
[2016-12-04 05:27] LABS: % IMMATURE GRANULYOCYTES 0.4 % (0.0-1.1); ABSOLUTE IMMATURE GRANULOCYTES 0.03 10^3/uL (0.00-0.10); ADD DIFF? NO; ADD MORPH? NO; ADD SCAN? NO; ATYPICAL LYMPHOCYTE FLAG 30 (0-99); FRAGMENT RBC FLAG 0 (0-99); HEMATOCRIT 28.5 % (38.0-47.0); LEFT SHIFT FLG 0 (0-99); LIPEMIA HEMOLYSIS FLAG 80 (0-99); MEAN CELL HEMOGLOBIN 27.3 pg (27.9-34.1); MEAN CELL HEMOGLOBIN CONCENTR. 31.6 g/dL (32.4-36.7); MEAN CELL VOLUME 86.4 fL (81.5-99.8); MEAN PLATELET VOLUME 10.6 fL (8.7-11.7); PLATELET CLUMPS FLAG 10 (0-99); PLATELET COUNT 364 10^3/uL (150-400); RED CELL DISTRIBUTION WIDTH 13.9 % (11.5-15.2)
[2016-12-04 05:49] LABS: ANION GAP 12 mEq/L (8-16); CALCIUM 8.3 mg/dL (8.5-10.4); CARBON DIOXIDE 19 mEq/l (22-31); CHLORIDE 111 mEq/L (97-110); CREATININE 0.8 mg/dL (0.6-1.0); GLOMERULAR FILTRATION RATE > 60; GLUCOSE 80 mg/dL (70-100); POTASSIUM 4.4 mEq/L (3.5-5.2); SODIUM 142 mEq/L (134-144)
[2016-12-04] MEDS: ENOXAPARIN 40 MG/0.4 ML SYR SC SCH (08:31)
[2016-12-04] MEDS: IBUPROFEN 200 MG TAB PO PRN ×2 (08:31→23:23)
[2016-12-04] MEDS: ERTAPENEM 1 GM in NS 100 ML IV SCH (08:31)
--- NOTE | 2016-12-04 09:36 | SOAPPROG ---
SOAP Progress Note Assessment/Plan: Assessment: 46 yo with colitis/ Overall improved with abx. Pain with bowel movements bartender helper As tenderness resolves, advance diet Continue abx WIll follow S: Overall better but nausea/diaphoresis and pain with BM. Plan: 12/04/16 09:34 Objective: Vital Signs Temp Pulse Resp BP Pulse Ox 37.1 C 80 16 100/63 94 12/04/16 07:30 12/04/16 07:30 12/04/16 07:30 12/04/16 07:30 12/04/16 07:30 Laboratory Results 12/04/16 04:15 12/04/16 04:15 12/03/16 12/04/16 12/05/16 05:59 05:59 05:59 Intake Total 1410 Balance 1410 Physical Exam - Physical Exam General Appearance: WD/WN, alert, no apparent distress EENT: PERRL/EOMI, normal ENT inspection, No scleral icterus (R), No scleral icterus (L), No hearing deficit Neck: supple Respiratory: lungs clear, normal breath sounds Cardiac/Chest: regular rate, rhythm Abdomen: soft, other (hypoactive bowel sounds, tender LLQ to palpation. Otherwise non tender. Non distended) Skin: normal color, warm/dry Extremities: normal range of motion Neuro/Psych: no motor/sensory deficits, alert, normal mood/affect ICD10 Worksheet Patient Problems: Problems Problem Status Onset Abdominal pain Acute Leukocytosis Acute
--- NOTE | 2016-12-04 17:03 | HOSPPROG ---
Hospitalist Progress Note Assessment/Plan: 46-year-old female admitted with abdominal pain and find to have sigmoid colitis. It is unclear if it is infectious or inflammatory she has been placed on IV antibiotics and is slowly improving with that and bowel rest. - Acute sigmoid colitis either inflammatory or infectious. With bowel rest she is slowly improving. - Hematuria noted on admission likely secondary to a contaminated urine due to menstrual period. - Anemia stable plan: Continue bowel rest and the antibiotics for approximately 48 hours at that time will decide if the antibiotics should be continued. She is afebrile with a normal white count. Subjective: no complaints Objective: Vital Signs Temp Pulse Resp BP Pulse Ox 36.7 C 80 16 95/60 L 95 12/04/16 15:18 12/04/16 15:18 12/04/16 15:18 12/04/16 15:18 12/04/16 15:18 Laboratory Results 12/04/16 04:15 12/04/16 04:15 12/03/16 12/04/16 12/05/16 05:59 05:59 05:59 Intake Total 1410 Balance 1410 - Time Spent With Patient Time Spent with Patient: greater than 25 minutes Time Spent with Patient: Greater than 25 minutes spent on this patients care, greater than 50% of time spent counseling, educating, and coordinating care regarding the above mentioned plan. - Pending Discharge Pending Discharge Within 24 Hours: No Pending Discharge Within 48 Hours: Yes Pending Discharge Date: 12/06/16 Pending Discharge Time: 11:00 - Physical Exam Constitutional: no apparent distress Eyes: PERRL, anicteric sclera Ears, Nose, Mouth, Throat: moist mucous membranes, hearing normal Cardiovascular: regular rate and rhythym, no murmur, rub, or gallop Respiratory: no respiratory distress, no rales or rhonchi Gastrointestinal: normoactive bowel sounds, tenderness Genitourinary: no bladder fullness Skin: warm Musculoskeletal: full muscle strength Neurologic: AAOx3, CN II-XII Intact ICD10 Worksheet Patient Problems: Problems Problem Status Onset Abdominal pain Acute Leukocytosis Acute
[2016-12-05 05:11] LABS: % IMMATURE GRANULYOCYTES 0.2 % (0.0-1.1); ABSOLUTE IMMATURE GRANULOCYTES 0.01 10^3/uL (0.00-0.10); ADD DIFF? NO; ADD MORPH? NO; ADD SCAN? NO; ATYPICAL LYMPHOCYTE FLAG 50 (0-99); FRAGMENT RBC FLAG 0 (0-99); HEMATOCRIT 28.4 % (38.0-47.0); HEMOGLOBIN 8.9 g/dL (12.6-16.3); LEFT SHIFT FLG 0 (0-99); LIPEMIA HEMOLYSIS FLAG 80 (0-99); MEAN CELL HEMOGLOBIN 27.1 pg (27.9-34.1); MEAN CELL HEMOGLOBIN CONCENTR. 31.3 g/dL (32.4-36.7); MEAN CELL VOLUME 86.3 fL (81.5-99.8); MEAN PLATELET VOLUME 10.6 fL (8.7-11.7); PLATELET CLUMPS FLAG 10 (0-99); PLATELET COUNT 379 10^3/uL (150-400); RED BLOOD CELL COUNT 3.29 10^6/uL (4.18-5.33); RED CELL DISTRIBUTION WIDTH 13.9 % (11.5-15.2)
[2016-12-05] MEDS: ERTAPENEM 1 GM in NS 100 ML IV SCH (08:12)
[2016-12-05] MEDS: ENOXAPARIN 40 MG/0.4 ML SYR SC SCH (08:12)
[2016-12-05 11:18] VITALS: TEMP 98.1
--- NOTE | 2016-12-05 11:40 | SOAPPROG ---
SOAP Progress Note Assessment/Plan: Assessment: 46 yo with colitis/ Overall improved with abx. Minimal tenderness Continue abx ? total of 10 days Hopefully home soon, doubt will need surgical intervention S: Feels much better today Plan: 12/04/16 09:34 12/05/16 11:38 Subjective: Feeling much improved today. Slept well Objective: Vital Signs Temp Pulse Resp BP Pulse Ox 36.7 C 78 14 110/69 96 12/05/16 11:16 12/05/16 11:16 12/05/16 11:16 12/05/16 11:16 12/05/16 11:16 Laboratory Results 12/05/16 04:13 12/04/16 04:15 12/04/16 12/05/16 12/06/16 05:59 05:59 05:59 Intake Total 1410 450 Balance 1410 450 Physical Exam - Physical Exam General Appearance: WD/WN, alert, no apparent distress EENT: PERRL/EOMI, normal ENT inspection, No scleral icterus (R), No scleral icterus (L), No hearing deficit Neck: full range of motion, supple Respiratory: lungs clear, normal breath sounds Cardiac/Chest: regular rate, rhythm, No edema Abdomen: normal bowel sounds, soft, other (minimal tenderness LLQ) Skin: normal color, warm/dry Extremities: normal range of motion, non-tender Neuro/Psych: no motor/sensory deficits, alert, normal mood/affect ICD10 Worksheet Patient Problems: Problems Problem Status Onset Abdominal pain Acute Leukocytosis Acute
[2016-12-05 15:09] VITALS: BP 104/65; PULSE 82; RESP 16; O2SAT 97
--- NOTE | 2016-12-05 17:12 | GDS ---
[f rep st] DISCHARGE SUMMARY KNOWN ACUTE DIAGNOSES: 1. Acute sigmoid colitis. 2. Hematuria secondary to a menstrual period. 3. Anemia with a discharge hemoglobin of 8.9 and stable. 4. Leukocytosis on admission, resolved to a discharge WBC of 5.8. CONSULTATIONS: General Surgery and Gastroenterology. PROCEDURES: None. HOSPITAL COURSE: This is a 46-year-old female who presented with left lower quadrant and generalize d abdominal pain. She was noted to have a leukocytosis. On admission, a CT of the abdomen showed c oncentric narrowing of the proximal sigmoid colon with an adjacent inflammatory process extending ca udal medially into the left adnexal region resulting in a regional colitis. There was mild splenome lidia also noted and a small hepatic cyst. She was admitted with a diagnosis of colitis and placed o n Invanz daily. She made persistent improvement. On the day of discharge, was able to tolerate a r egular diet in small amounts. She had no nausea or vomiting and had small liquidy stool. Also note d was some hematuria but cultures of the gastrointestinal tract were negative. DISCHARGE MEDICATIONS: New medication is Levaquin 750 mg p.o. daily for 7 days. Regular medication s would be tramadol 50 mg q.4 hours p.r.n. pain, Remeron 15 mg q. every third day, magnesium oxide, herbal supplements, vitamin B complex, ibuprofen 800 mg p.o. q.i.d. p.r.n. pain, vitamin C 0780-3003 mg p.o. daily. PLAN: Patient is discharged home. It is recommended she follow up in approximately 2 weeks with GI of the [facility] or with [facility]. LABORATORIES: Of note at the time of discharge WBC 5000, hemoglobin 8.9. Indices show possibility of iron deficiency with a low MCHC. Her BMP was essentially normal. Albumin 2.9. Procalcitonin wa s 0.12. Beta hCG negative. Urinalysis had red cells, white cells but was felt to be contaminated a nd a GI tract panel PCR showed no organisms detected. TIME: This discharge required 40 minutes, greater than 50% to patient financial counselor and coordinate care. The [facility] ient was given a written prescription of levofloxacin. /[id number]/MODL
[2016-12-06] MEDS ORDERED: MIRTAZAPINE 15 MG TAB PO SCH (08:00)
[2016-12-06] MEDS ORDERED: NON-FORMULARY NEW DRUG (Mirtazapine [Remeron] 15 MG) PO SCH (08:00)
== END 2016-12-05 17:04 | disposition home or self-care (01) | DRG 392 ==
LOC: F3E 12-03 05:29 → OBSVTOIN 12-03 17:00
PROVIDERS: ADMIT Student in an Organized Health Care Education/Training Program; ATTEND Internal Medicine Pulmonary Disease
DX: K52.3 Indeterminate colitis (principal); D64.9 Anemia, unspecified
CPT/HCPCS: J1335; J1650; J1885; Q9967